=== PATIENT | female | born 1995 | race Caucasian/White ===

== ENCOUNTER 2020-02-03 04:29 | Observation (INO) | payer MEDICAID, OTHER ==
[2020-02-03] MEDS ORDERED: Sodium Chloride 0.9% 10 ML Syringe FLUSH PRN (04:40)
[2020-02-03] MEDS ORDERED: Sodium Chloride 0.9% 10 ML SDV IV PRN (04:40)
[2020-02-03] MEDS ORDERED: Sodium Chloride 0.9% 2.5 ML Syringe FLUSH PRN ×2 (04:40→08:13)
[2020-02-03] MEDS ORDERED: diphenhydrAMINE 50 MG/ML SDV IVPUSH ONE (04:41)
[2020-02-03] MEDS ORDERED: Metoclopramide 10 MG/2 ML SDV IVPUSH ONE (04:41)
[2020-02-03] MEDS ORDERED: Ketorolac 15 MG/ML SDV IVPUSH ONE ×2 (04:41→05:22)
[2020-02-03] MEDS ORDERED: Sodium Chloride 0.9% 500 ML IV SCH (04:45)
--- NOTE | 2020-02-03 04:46 | EDM.PDOC ---
ED HPI GENERAL MEDICAL PROBLEM - General Chief Complaint: Headache Stated Complaint: MIGRAINE Time Seen by Provider: 02/03/20 04:40 Source of Information: Reports: Patient, EMS - History of Present Illness INITIAL COMMENTS - FREE TEXT/NARRATIVE: History of present illness: 24-year-old female brought by EMS for headache and stroke type symptoms. Apparently the headache developed several hours prior to arrival, however shortly before calling EMS the patient developed an abnormal feeling of difficulty speaking and numbness over the right half of her body. She has had a previous migraine with neurologic features that did involve numbness over her face, however just moved here and has no recent care nor any records in any hospital locally here. Patient is not really able to clarify exactly about the onset time of her neurologic type symptoms. She is tearful and anxious. Review of systems: As per history of present illness and below otherwise all systems reviewed and negative. Past medical history: As per history of present illness and as reviewed below otherwise noncontributory. Complex migraine Surgical history: As per history of present illness and as reviewed below otherwise no ncontributory. Social history: No reported history of drug or alcohol abuse. Denies tobacco Family history: As per history of present illness and as reviewed below otherwise noncontributory. Physical exam: GEN: no acute distress, well appearing HEENT: Atraumatic, normocephalic, mucous membranes moist, Neck: supple, nontender, trachea midline. Lungs: No respiratory distress. Heart: RRR Abdomen: Soft, nondistended, nontender. Back: nontender Extremities: Atraumatic. This over right arm and right leg. Neuro: Awake, alert, slightly aphasic with no dysarthria. Mild numbness over the right face, right arm and right leg. Full range of motion , intact strength. Psych: Extremely anxious and tearful Skin: warm, dry, no lesions Diagnostics: [] Therapeutics: [] MDM: Impression: [] Plan: [] Definitive disposition and diagnosis as appropriate pending reevaluation and review of above. head Pain Score (Numeric/FACES): 5 - Related Data Allergies Allergy/AdvReac Type Severity Reaction Status Date / Time hydrocodone Allergy Other Verified 02/03/20 08:30 methenamine [From Hiprex] Allergy Other Verified 02/03/20 08:30 Sulfa (Sulfonamide Allergy Other Verified 02/03/20 08:30 Antibiotics) Home Meds: Home Meds . [No Known Home Meds] 02/03/20 [History] ED ROS GENERAL - Review of Systems Review Of Systems: See Below (See HPI) - Physical Exam Exam: See Below (See HPI) EKG INTERPRETATION EKG Interpretation Comments: EKG performed today at 6:29 AM, sinus rhythm, rate 84, T inversion in lead III. No STEMI. Interpreted by me. Course - Vital Signs Text/Narrative:: Headache, right-sided numbness and mild aphasia. Prior similar symptoms in association with a headache in the past. NIH stroke scale 2. Repeat examination her NIH stroke scale is 1. Patient does report she has extreme anxiety. Suspect complex migraine versus TIA. Symptoms completely resolved after headache pain control. CT scan was negative. Will admit. Last Recorded V/S: Last Vital Signs Temp 98.6 F 02/03/20 15:38 Pulse 76 02/03/20 15:38 Resp 16 02/03/20 15:38 BP 98/48 L 02/03/20 15:38 Pulse Ox 95 02/03/20 15:38 - Orders/Labs/Meds Orders: Active Orders 24 hr Category Date Time Status Nursing Bedside Swallow Screen [RC] STAT Care 02/03/20 04:40 Active Labs: Laboratory Tests 02/03/20 02/03/20 02/03/20 Range/Units 04:41 04:41 04:41 WBC 9.52 (4.0-11.0) K/uL RBC 5.23 (4.30-5.90) M/uL Hgb 14.7 (12.0-16.0) g/dL Hct 42.0 (36.0-46.0) % MCV 80.3 (80.0-98.0) fL MCH 28.1 (27.0-32.0) pg MCHC 35.0 (31.0-37.0) g/dL RDW Std Deviation 35.7 (28.0-62.0) fl RDW Coeff of Hector 12 (11.0-15.0) % Plt Count 298 (150-400) K/uL MPV 11.30 (7.40-12.00) fL Neut % (Auto) 43.2 L (48.0-80.0) % Lymph % (Auto) 48.9 H (16.0-40.0) % [place] % (Auto) 6.9 (0.0-15.0) % Eos % (Auto) 0.7 (0.0-7.0) % Baso % (Auto) 0.3 (0.0-1.5) % Neut # (Auto) 4.1 (1.4-5.7) K/uL Lymph # (Auto) 4.7 H (0.6-2.4) K/uL [place] # (Auto) 0.7 (0.0-0.8) K/uL Eos # (Auto) 0.1 (0.0-0.7) K/uL Baso # (Auto) 0.0 (0.0-0.1) K/uL Nucleated RBC % 0.0 /100WBC Nucleated RBCs # 0 K/uL INR 1.03 APTT 26.1 (18.6-31.3) SEC Sodium 138 (136-145) mmol/L Potassium 2.9 L (3.5-5.1) mmol/L Chloride 101 (98-107) mmol/L Carbon Dioxide 21.5 (21.0-32.0) mmol/L BUN 9 (7.0-18.0) mg/dL Creatinine 0.9 (0.6-1.0) mg/dL Est Cr Clr Drug Dosing TNP Estimated GFR (MDRD) > 60.0 ml/min Glucose 126 H (74-106) mg/dL POC Glucose (60-110) mg/dL Calcium 9.4 (8.5-10.1) mg/dL Magnesium (1.8-2.4) mg/dL Total Bilirubin 0.8 (0.2-1.0) mg/dL AST 10 L (15-37) IU/L ALT 12 L (14-63) IU/L Alkaline Phosphatase 79 (46-116) U/L Troponin I < 0.050 (0.000-0.056) ng/mL Total Protein 7.5 (6.4-8.2) g/dL Albumin 4.4 (3.4-5.0) g/dL Globulin 3.1 (2.6-4.0) g/dL Albumin/Globulin Ratio 1.4 (0.9-1.6) HCG, Quant < 1.0 mIU/mL SARS Virus RNA (PCR) (NEGATIVE) 02/03/20 02/03/20 02/03/20 Range/Units 04:41 05:18 06:36 WBC (4.0-11.0) K/uL RBC (4.30-5.90) M/uL Hgb (12.0-16.0) g/dL Hct (36.0-46.0) % MCV (80.0-98.0) fL MCH (27.0-32.0) pg MCHC (31.0-37.0) g/dL RDW Std Deviation (28.0-62.0) fl RDW Coeff of Hector (11.0-15.0) % Plt Count (150-400) K/uL MPV (7.40-12.00) fL Neut % (Auto) (48.0-80.0) % Lymph % (Auto) (16.0-40.0) % [place] % (Auto) (0.0-15.0) % Eos % (Auto) (0.0-7.0) % Baso % (Auto) (0.0-1.5) % Neut # (Auto) (1.4-5.7) K/uL Lymph # (Auto) (0.6-2.4) K/uL [place] # (Auto) (0.0-0.8) K/uL Eos # (Auto) (0.0-0.7) K/uL Baso # (Auto) (0.0-0.1) K/uL Nucleated RBC % /100WBC Nucleated RBCs # K/uL INR APTT (18.6-31.3) SEC Sodium (136-145) mmol/L Potassium (3.5-5.1) mmol/L Chloride (98-107) mmol/L Carbon Dioxide (21.0-32.0) mmol/L BUN (7.0-18.0) mg/dL Creatinine (0.6-1.0) mg/dL Est Cr Clr Drug Dosing Estimated GFR (MDRD) ml/min Glucose (74-106) mg/dL POC Glucose 95 (60-110) mg/dL Calcium (8.5-10.1) mg/dL Magnesium 1.9 (1.8-2.4) mg/dL Total Bilirubin (0.2-1.0) mg/dL AST (15-37) IU/L ALT (14-63) IU/L Alkaline Phosphatase (46-116) U/L Troponin I (0.000-0.056) ng/mL Total Protein (6.4-8.2) g/dL Albumin (3.4-5.0) g/dL Globulin (2.6-4.0) g/dL Albumin/Globulin Ratio (0.9-1.6) HCG, Quant mIU/mL SARS Virus RNA (PCR) NEGATIVE (NEGATIVE) Meds: Medications Discontinued Medications Generic Name Dose Route Start Last Admin Trade Name Freq PRN Reason Stop Dose Admin Acetaminophen 650 mg 02/03/20 08:11 Tylenol PO Q4H PRN Pain (Mild 1-3)/fever Calcium Carbonate/Glycine 1,000 mg 02/03/20 11:08 02/03/20 11:38 Tums PO 02/03/20 11:09 1,000 mg ONETIME ONE Administration Diphenhydramine HCl 25 mg 02/03/20 04:41 02/03/20 05:05 Benadryl IVPUSH 02/03/20 04:42 25 mg ONETIME ONE Administration Sodium Chloride 1,000 mls @ 999 mls/hr 02/03/20 05:10 02/03/20 05:11 Normal Saline IV 02/03/20 06:10 999 mls/hr .BOLUS ONE Administration Piperacillin Sod/Tazobactam 50 mls @ 100 mls/hr 02/03/20 06:38 02/03/20 08:08 Sod 3.375 gm/ Sodium Chloride IV 02/03/20 07:07 Not Given ONETIME ONE Potassium Chloride/Sodium Chloride 1,000 mls @ 150 mls/hr 02/03/20 08:11 02/03/20 08:50 Normal Saline With 40 Meq Kcl IV 02/03/20 14:50 150 mls/hr ONETIME ONE Administration Pantoprazole Sodium 40 mg/ 10 mls @ 300 mls/hr 02/03/20 11:08 02/03/20 11:38 Sodium Chloride IV 02/03/20 11:09 300 mls/hr NOW ONE Administration Ibuprofen 400 mg 02/03/20 11:02 Motrin PO Q6H PRN pain,headache Ketorolac Tromethamine 15 mg 02/03/20 04:41 02/03/20 05:05 Toradol IVPUSH 02/03/20 04:42 15 mg ONETIME ONE Administration Ketorolac Tromethamine 15 mg 02/03/20 05:22 02/03/20 05:35 Toradol IVPUSH 02/03/20 05:23 15 mg ONETIME ONE Administration Metoclopramide HCl 10 mg 02/03/20 04:41 02/03/20 05:05 Reglan IVPUSH 02/03/20 04:42 10 mg ONETIME ONE Administration Ondansetron HCl 4 mg 02/03/20 05:22 02/03/20 05:34 Zofran IVPUSH 02/03/20 05:23 4 mg ONETIME ONE Administration Ondansetron HCl 4 mg 02/03/20 08:11 Zofran IVPUSH Q4H PRN Nausea Potassium Chloride 40 meq 02/03/20 10:03 02/03/20 10:57 Klor-Con M20 PO 02/03/20 10:04 40 meq ONETIME ONE Administration Sodium Chloride 10 ml 02/03/20 04:40 Saline Flush FLUSH ASDIRECTED PRN Keep Vein Open Sodium Chloride 2.5 ml 02/03/20 04:40 Saline Flush FLUSH ASDIRECTED PRN Keep Vein Open Sodium Chloride 10 ml 02/03/20 04:40 Normal Saline IV ASDIRECTED PRN IV Use Sodium Chloride 2.5 ml 02/03/20 08:13 Saline Flush FLUSH ASDIRECTED PRN IV Use - Re-Assessments/Exams Free Text/Narrative Re-Assessment/Exam: 02/03/20 05:23 Assessed the patient when she returned from CT scan. She does report that her headache is improved. It was initially an 6 out of 10 and now she reports it is 4 out of 10, however she still feels nauseated. She does report that her numbness of the right face/right arm and right leg is much improved though not completely resolved. On my repeat neurologic examination, her speech is fluent and clear, without any aphasia remaining. Based on her rapidly resolving symptoms, the patient is not a TPA candidate. Current stroke scale 1. 02/03/20 06:43 Patient resting comfortably and in no acute distress. Discussed recommendation for admission. She agrees. Stroke scale 0. 02/03/20 06:57 Dr. Roque called back, case discussed, accepts the admission. He request to place the patient observation, telemetry. Departure - Departure Time of Disposition: 06:57 Disposition: Refer to Observation Clinical Impression: Migraine - Discharge Information - My Orders Last 24 Hours: My Active Orders 02/03/20 04:40 Nursing Bedside Swallow Screen [RC] STAT - Assessment/Plan Last 24 Hours: My Active Orders 02/03/20 04:40 Nursing Bedside Swallow Screen [RC] STAT
[2020-02-03] MEDS ORDERED: Sodium Chloride 0.9% 1,000 ML IV ONE (05:10)
--- NOTE | 2020-02-03 05:20 | CT ---
Indication: Facial numbness, difficulty speaking Technique: Nonenhanced axial CT imaging through the head. Sagittal and coronal reconstructions are provided. Comparison: None Findings: There is no intracranial hemorrhage, edema, or mass effect. There is normal attenuation of the brain parenchyma. The ventricles are normal in size. The basal cisterns are patent. The calvarium is intact. The visualized paranasal sinuses and mastoid air cells are aerated. Impression: No acute intracranial process. Please note that all CT scans at this facility use dose modulation, iterative reconstruction, and/or weight-based dosing when appropriate to reduce radiation dose to as low as reasonably achievable. Dictated by Irina Rivera MD @ Feb 03 2020 5:12AM Signed by Dr. Irina Rivera @ Feb 03 2020 5:18AM
[2020-02-03] MEDS ORDERED: Ondansetron 4 MG/2 ML SDV IVPUSH ONE (05:22)
[2020-02-03 05:25] LABS: BLOOD UREA NITROGEN,BUN 9 mg/dL (7.0-18.0); CARBON DIOXIDE,CO2 21.5 mmol/L (21.0-32.0); CHLORIDE,CL 101 mmol/L (98-107); GLUCOSE RANDOM 126 mg/dL (74-106); POTASSIUM,K 2.9 mmol/L (3.5-5.1); SODIUM,NA 138 mmol/L (136-145)
[2020-02-03] MEDS ORDERED: Piperacillin/Tazobactam 3.375 GM in Sodium Chloride 0.9% 50 ML IV ONE (06:38)
[2020-02-03] MEDS ORDERED: Ondansetron 4 MG/2 ML SDV IVPUSH PRN (08:11)
[2020-02-03] MEDS ORDERED: Sodium Chloride 0.9% with KCl 1,000 ML IV ONE (08:11)
[2020-02-03] MEDS ORDERED: Acetaminophen 325 MG Tab PO PRN (08:11)
[2020-02-03] MEDS ORDERED: Potassium Chloride 20 MEQ Tab.ER PO ONE (10:03)
--- NOTE | 2020-02-03 10:03 | PCM.HP.2 ---
H&P History of Present Illness - General Date of Service: 02/03/20 Admit Problem/Dx: Admission Diagnosis/Problem Admission Diagnosis/Problem Migraine Source of Information: Patient History Limitations: Reports: No Limitations - History of Present Illness Initial Comments - Free Text/Narative: This 24 year old female with pmh of complicated migraines presented to the ED with complaints of migraine and R eye blurred vision and tingling to the R side of her body. She reports she noted migraine around 10 pm last night and took Excedrine. She felt as though the headache improved, but then around 2 am she started having floaters in her R eye and some facial numbness and she got scared and called EMS. In the ED she reports the headache was all over and her typical migraine. She had pressed and slow speech along with the blurred vision. She reports this is all in line with her recent diagnoses of complicated migraine. She had episode of this last January 2019, in which she had stroke like symptoms. Had extensive workup in her hometown and Neurology diagnosed the complicated migraine. She was offered Nortriptyline, but declined this and started diet, sleep habit changes and taking oral magnesium. The last episode was April 2019. She recently stopped the magnesium. She gets 2-4 migraines a month, but the complicated migraines she has had 4-5 since January 2019. She denies tobacco use, recreational drug use and alcohol use. In the ED CBC WNL, Hypokalemia noted on BMP. She reports this also happened with last migraine as well. She was given migraine cocktail of Benadryl, Zofran and Toradol. Headache improved significantly as well as neurological symptoms. Head CT obtained which was negative. She was admitted for migraine and hypokalemia. PCP, out of state, lives in [place] here visiting boyfriend head Pain Score (Numeric/FACES): 5 - Related Data Allergies/Adverse Reactions: Allergies Allergy/AdvReac Type Severity Reaction Status Date / Time hydrocodone Allergy Other Verified 02/03/20 08:30 methenamine [From Hiprex] Allergy Other Verified 02/03/20 08:30 Sulfa (Sulfonamide Allergy Other Verified 02/03/20 08:30 Antibiotics) Home Medications: Home Meds . [No Known Home Meds] 02/03/20 [History] Past Medical History HEENT History: Reports: None Cardiovascular History: Reports: None. Denies: Blood Clots/VTE/DVT, Hypertension Respiratory History: Reports: None. Denies: Asthma Gastrointestinal History: Reports: None Genitourinary History: Reports: Urinary Incontinence, UTI, Recurrent CEMENT PAVER History: Reports: None Musculoskeletal History: Reports: None Neurological History: Reports: Migraines (complicated with neurological symptoms) Psychiatric History: Reports: Anxiety, Panic Attack, Other (See Below) Other Psychiatric History: pt states she has not beem diagnosed but she is an anxious person. Endocrine/Metabolic History: Reports: None. Denies: Diabetes, Type II Hematologic History: Reports: None Dermatologic History: Reports: None - Infectious Disease History Infectious Disease History: Reports: Chicken Pox Social & Family History - Family History Family Medical History: Noncontributory - Tobacco Use Smoking Status *Q: Never Smoker - Alcohol Use Alcohol Use History: No - Recreational Drug Use Recreational Drug Use: No - Living Situation & Occupation Living situation: Reports: Single H&P Review of Systems - Review of Systems: Review Of Systems: See Below General: Reports: No Symptoms. Denies: Fever, Chills, Malaise, Weakness HEENT: Reports: Headaches (nearly gone now.), Visual Changes (R blurred vision, has since gone away) Pulmonary: Reports: No Symptoms. Denies: Shortness of Breath Cardiovascular: Reports: No Symptoms. Denies: Chest Pain Gastrointestinal: Reports: No Symptoms. Denies: Abdominal Pain, Black Stool, Bloody Stool, Nausea, Vomiting Genitourinary: Reports: No Symptoms. Denies: Dysuria, Frequency Musculoskeletal: Reports: No Symptoms Skin: Reports: No Symptoms Psychiatric: Reports: No Symptoms Neurological: Reports: Headache, Tingling (R side of body, now gone), Trouble Speaking Hematologic/Lymphatic: Reports: No Symptoms Immunologic: Reports: No Symptoms Exam - Exam Exam: See Below - Vital Signs Vital Signs: Last Vital Signs Temp 96.9 F 02/03/20 05:50 Pulse 78 02/03/20 08:00 Resp 18 02/03/20 08:00 BP 95/53 L 02/03/20 08:00 Pulse Ox 98 02/03/20 08:00 Weight: 51.256 kg - Exam General: Alert, Oriented, Cooperative HEENT: Conjunctiva Clear, Mucosa Moist & [place], Posterior Pharynx Clear, Pupils Equal, Pupils Reactive Lungs: Clear to Auscultation, Normal Respiratory Effort Cardiovascular: Regular Rate, Regular Rhythm GI/Abdominal Exam: Normal Bowel Sounds, Non-Tender Extremities: Normal Inspection, Normal Range of Motion, Non-Tender, No Pedal Edema Neurological: Cranial Nerves Intact, Strength Equal Bilateral, Normal Speech Neuro Extensive - Mental Status: Alert, Oriented x3, Normal Mood/Affect Neuro Extensive - Motor, Sensory, Reflexes: CN II-XII Intact, Normal Gait Psychiatric: Alert, Normal Affect, Normal Mood - Patient Data Lab Results Last 24 hrs: Laboratory Results - last 24 hr 02/03/20 02/03/20 02/03/20 Range/Units 04:41 04:41 04:41 WBC 9.52 (4.0-11.0) K/uL RBC 5.23 (4.30-5.90) M/uL Hgb 14.7 (12.0-16.0) g/dL Hct 42.0 (36.0-46.0) % MCV 80.3 (80.0-98.0) fL MCH 28.1 (27.0-32.0) pg MCHC 35.0 (31.0-37.0) g/dL RDW Std Deviation 35.7 (28.0-62.0) fl RDW Coeff of Hector 12 (11.0-15.0) % Plt Count 298 (150-400) K/uL MPV 11.30 (7.40-12.00) fL Neut % (Auto) 43.2 L (48.0-80.0) % Lymph % (Auto) 48.9 H (16.0-40.0) % [place] % (Auto) 6.9 (0.0-15.0) % Eos % (Auto) 0.7 (0.0-7.0) % Baso % (Auto) 0.3 (0.0-1.5) % Neut # (Auto) 4.1 (1.4-5.7) K/uL Lymph # (Auto) 4.7 H (0.6-2.4) K/uL [place] # (Auto) 0.7 (0.0-0.8) K/uL Eos # (Auto) 0.1 (0.0-0.7) K/uL Baso # (Auto) 0.0 (0.0-0.1) K/uL Nucleated RBC % 0.0 /100WBC Nucleated RBCs # 0 K/uL INR 1.03 APTT 26.1 (18.6-31.3) SEC Sodium 138 (136-145) mmol/L Potassium 2.9 L (3.5-5.1) mmol/L Chloride 101 (98-107) mmol/L Carbon Dioxide 21.5 (21.0-32.0) mmol/L BUN 9 (7.0-18.0) mg/dL Creatinine 0.9 (0.6-1.0) mg/dL Est Cr Clr Drug Dosing TNP Estimated GFR (MDRD) > 60.0 ml/min Glucose 126 H (74-106) mg/dL POC Glucose (60-110) mg/dL Calcium 9.4 (8.5-10.1) mg/dL Magnesium (1.8-2.4) mg/dL Total Bilirubin 0.8 (0.2-1.0) mg/dL AST 10 L (15-37) IU/L ALT 12 L (14-63) IU/L Alkaline Phosphatase 79 (46-116) U/L Troponin I < 0.050 (0.000-0.056) ng/mL Total Protein 7.5 (6.4-8.2) g/dL Albumin 4.4 (3.4-5.0) g/dL Globulin 3.1 (2.6-4.0) g/dL Albumin/Globulin Ratio 1.4 (0.9-1.6) HCG, Quant < 1.0 mIU/mL SARS Virus RNA (PCR) (NEGATIVE) 02/03/20 02/03/20 02/03/20 Range/Units 04:41 05:18 06:36 WBC (4.0-11.0) K/uL RBC (4.30-5.90) M/uL Hgb (12.0-16.0) g/dL Hct (36.0-46.0) % MCV (80.0-98.0) fL MCH (27.0-32.0) pg MCHC (31.0-37.0) g/dL RDW Std Deviation (28.0-62.0) fl RDW Coeff of Hector (11.0-15.0) % Plt Count (150-400) K/uL MPV (7.40-12.00) fL Neut % (Auto) (48.0-80.0) % Lymph % (Auto) (16.0-40.0) % [place] % (Auto) (0.0-15.0) % Eos % (Auto) (0.0-7.0) % Baso % (Auto) (0.0-1.5) % Neut # (Auto) (1.4-5.7) K/uL Lymph # (Auto) (0.6-2.4) K/uL [place] # (Auto) (0.0-0.8) K/uL Eos # (Auto) (0.0-0.7) K/uL Baso # (Auto) (0.0-0.1) K/uL Nucleated RBC % /100WBC Nucleated RBCs # K/uL INR APTT (18.6-31.3) SEC Sodium (136-145) mmol/L Potassium (3.5-5.1) mmol/L Chloride (98-107) mmol/L Carbon Dioxide (21.0-32.0) mmol/L BUN (7.0-18.0) mg/dL Creatinine (0.6-1.0) mg/dL Est Cr Clr Drug Dosing Estimated GFR (MDRD) ml/min Glucose (74-106) mg/dL POC Glucose 95 (60-110) mg/dL Calcium (8.5-10.1) mg/dL Magnesium 1.9 (1.8-2.4) mg/dL Total Bilirubin (0.2-1.0) mg/dL AST (15-37) IU/L ALT (14-63) IU/L Alkaline Phosphatase (46-116) U/L Troponin I (0.000-0.056) ng/mL Total Protein (6.4-8.2) g/dL Albumin (3.4-5.0) g/dL Globulin (2.6-4.0) g/dL Albumin/Globulin Ratio (0.9-1.6) HCG, Quant mIU/mL SARS Virus RNA (PCR) NEGATIVE (NEGATIVE) Result Diagrams: 02/03/20 04:41 02/03/20 15:16 Sepsis Event Note - Evaluation Sepsis Screening Result: No Definite Risk - Focused Exam Vital Signs: Vital Signs Temp Pulse Resp BP Pulse Ox Pulse Ox 02/03/20 08:00 78 18 95/53 L 98 02/03/20 07:30 76 16 100/46 L 98 02/03/20 07:00 72 18 105/50 L 97 02/03/20 05:50 96.9 F 89 16 105/56 L 98 02/03/20 05:34 81 14 109/59 L 99 02/03/20 05:20 95 108/52 L 99 02/03/20 05:05 97.6 F 106 H 14 104/60 97 02/03/20 04:40 99 02/03/20 04:29 96.3 F L 106 H 14 96/50 L 99 Date Exam was Performed: 02/03/20 Time Exam was Performed: 16:05 - Problem List (1) Complicated migraine SNOMED Code(s): 181589592 ICD Code: G43.109 - MIGRAINE WITH AURA, NOT INTRACTABLE, W/O STATUS MIGRAINOSUS Status: Acute Current Visit: Yes Problem List Initiated/Reviewed/Updated: Yes Orders Last 24hrs: Active Orders 24 hr Category Date Time Status Patient Status [ADT] Routine ADT 02/03/20 06:58 Active Antiembolic Devices [RC] PER UNIT ROUTINE Care 02/03/20 08:12 Active Intake and Output [RC] QSHIFT Care 02/03/20 08:11 Active NIH Stroke Scale [RC] Q4H Care 02/03/20 08:13 Active Nursing Bedside Swallow Screen [RC] STAT Care 02/03/20 04:40 Active Oxygen Therapy [RC] PRN Care 02/03/20 08:11 Active Telemetry Monitoring [Cardiac Monitoring] [RC] . Care 02/03/20 08:14 Active DIRECTED Up With Assistance [RC] ASDIRECTED Care 02/03/20 08:11 Active VTE/DVT Education [RC] PER UNIT ROUTINE Care 02/03/20 08:11 Active Vital Signs [RC] Q4H Care 02/03/20 08:11 Active Regular Diet [DIET] Diet 02/03/20 Breakfast Active Acetaminophen [Tylenol] Med 02/03/20 08:11 Active 650 mg PO Q4H PRN Ondansetron [Zofran] Med 02/03/20 08:11 Active 4 mg IVPUSH Q4H PRN Sodium Chloride 0.9% [Saline Flush] Med 02/03/20 08:13 Active 2.5 ml FLUSH ASDIRECTED PRN Sodium Chloride 0.9% with KCl [Normal Saline with 40 Med 02/03/20 08:11 Active mEq KCl] 1,000 ml IV ONETIME Sequential Compression Device [OM.PC] Per Unit Routine Oth 02/03/20 08:12 Ordered Resuscitation Status Routine Resus Stat 02/03/20 08:11 Ordered Medication Orders Acetaminophen (Tylenol) 650 mg PO Q4H PRN PRN Reason: Pain (Mild 1-3)/fever Potassium Chloride/Sodium Chloride (Normal Saline With 40 Meq Kcl) 1,000 mls @ 150 mls/hr IV ONETIME ONE Stop: 02/03/20 14:50 Last Admin: 02/03/20 08:50 Dose: 150 mls/hr Documented by: ERIC Ondansetron HCl (Zofran) 4 mg IVPUSH Q4H PRN PRN Reason: Nausea Sodium Chloride (Saline Flush) 2.5 ml FLUSH ASDIRECTED PRN PRN Reason: IV Use Assessment/Plan Comment:: This 24 year old female admitted with complicated migraine and hypokalemia 1. Complicated migraine - Nearly gone now and all neurological symptoms are gone. - Monitor - recommend follow up with her Neurologist when she returns home. 2. Hypokalemia - 40 PO and 40 IV now - Magnesium 1.9 - Recheck this afternoon Dispo: Likely this afternoon if potassium improves. Discharge Plan: Continues to do well throughout the day. No further headache and no reoccurrence of neurological symptoms. Potassium improved to 4.3 with supplementation. Asking for discharge home this afternoon. She will be discharged home. Flies back to [place] soon, and will follow up with PCP and neurologist there. - Mortality Measure Prognosis:: Good
[2020-02-03] MEDS ORDERED: Ibuprofen 400 MG Tab PO PRN (11:02)
[2020-02-03] MEDS ORDERED: Calcium Carbonate 500 MG Tab.Chew PO ONE (11:08)
[2020-02-03] MEDS ORDERED: Pantoprazole 40 MG in Sodium Chloride 0.9% 10 ML IV ONE (11:08)
== END 2020-02-03 17:00 | disposition home or self-care (01) ==
LOC: MW.ED 04:29 → MW.MS 06:58
PROVIDERS: ADMIT Internal Medicine; ATTEND Internal Medicine
DX: G43.109 Migraine with aura, not intractable, without status migrainosus (principal); E87.6 Hypokalemia; F41.0 Panic disorder [episodic paroxysmal anxiety]; Z88.2 Allergy status to sulfonamides; Z88.5 Allergy status to narcotic agent; Z88.8 Allergy status to other drugs, medicaments and biological substances; Z20.828 Contact with and (suspected) exposure to other viral communicable diseases
CPT/HCPCS: 36415; 70450; 80053; 82962; 83735; 84132; 84484; 84702; 85025; 85610; 85730; 87635; 93005; A9270; C9113; J1200; J1885; J2405; J2765; J3480; J7030; J7050; 96374; 96375; 96376; 99283; 99285-25; U0002